=== PATIENT | male | born 1955 | race Caucasian/White ===

== ENCOUNTER → 2017-03-12 | Outpatient (CLI) | payer BC, OTHER ==
[~2017-03-12] VITALS: Ht 177.8 cm; Wt 122.9 kg
[~2017-03-12] MED LIST: ACCOLATE20 MG PO; ALLOPURINOL 10100 M1 PO; ASPIRIN325 PO; FLOMAX0.4 MG PO; HYDROCHLOROTHIA25 M2 PO; METFORMIN HCL500 MG PO; MUCINEX600 MG PO; NORVASC5 MG PO; PROSCAR 5MG TABL5 MG PO; PROTONIX 20 MG20 M1 PO; TRAMADOL 50 MG50 MG PO
--- NOTE | ~2017-03-12 | EKG ---
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 OSBORNE : 1955 Requested By: Darrell Reyes Order Number: [id number] MD: Darius Celis Measurements Intervals [place] Rate: 72 P: 10 CT: 157 QRS: -34 QRSD: 92 T: 32 QT: 398 QTc: 436 Interpretive Statements Sinus rhythm Abnormal R-wave progression, late transition No previous ECG available for comparison Electronically Signed On 03-12-2017 8:26:18 TESTER OPERATOR HELPER by Darius Celis [email or web address] <ELECTRONICALLY SIGNED> By: Darius Celis MD, [facility] 03/12/17 0826 0700 9 Darius Celis MD, FACC /EPI
--- NOTE | ~2017-03-12 | CATHLAB ---
[place] [address] [facility] [place] [address] INVASIVE PROCEDURE REPORT Name: CASANDRAMARISSA RINKU Room #: REG [facility] [id number] Admission: 03/12/17 Attend Phys: Darrell Reyes MD Discharge: Date of : 55 Date of Service: 03/12/17 1214 Report #: [id number] THIS REPORT FOR: //name// APPROVED REPORT Patient Details Patient Status: Out-Patient Room #: The patient is a 62 year-old male Event Personnel Darrell Reyes Fire Hazard Inspector, Elder George RN, Nancy RCIS, Mahmood, Amber Procedures Performed Cors only, Arterial access, Indication Dyspnea, Positive stress test Risk Factors Hypercholesterolemia, Hypertension, Diabetes Procedure Narrative The patient was brought electively to the Cardiac Catheterization Laboratory and was prepped and draped in a sterile manner. A 4 fr sheat sheath was inserted into the right femoral artery. Coronary angiography was performed using coronary diagnostic catheters. The right coronary system was accessed and visualized with a JR 4 catheter. The left coronary system was accessed and visualized with a JL 4 catheter. Hemostasis was obtained with manual pressure following sheath removal without any complications. The patient tolerated the procedure well and there were no complications associated with the procedure. There was no hematoma. Intraoperative Conscious Sedation Sedation start time: 09:46 Case end Time: 10:02 Fentanyl 25.0 mcg Versed 1.5 mg Fluoro Time: 5.20 minutes Dose: DAP 08383.58 cGycm2 1170 mGy Contrast Type and Amount: Omnipaque 80 Coronary Angiography The patient's coronary anatomy is right dominant. [facility] [address] [place] [address] INVASIVE PROCEDURE REPORT Name: MARISSA GUAJARDO Room #: REG CL [facility]#: [id number] Admission: 03/12/17 Attend Phys: Darrell Reyes MD Discharge: Date of : 55 Date of Service: 03/12/17 1214 Report #: [id number] Diagnostic Cath Left Main patent vessel, with no flow-limiting lesions. LAD Moderate size caliber vessel, traveling down the anterior wall and terminating before the apex. There is only mild disease in the proximal segment, less than 20%. Diagonal 1 Patent vessel, with no flow-limiting lesions. Circumflex Patent vessel, with no flow-limiting lesions. OM1 Patent vessel, with no flow-limiting lesions. Right Coronary Dominant vessel with mild disease in the proximal segment, 30%. R PDA Patent vessel, with no flow-limiting lesions. RPLV Patent vessel, with no flow-limiting lesions. Left Ventriculography Left Ventriculography was not performed. Conclusion 1. Mild, nonobstructive CAD. 2. Right dominant system. 3. Recommend aggressive risk factor management. <ELECTRONICALLY SIGNED> By: Darrell Reyes MD 03/12/17 1214 1214 Darrell Reyes MD /INF
[2017-03-12 07:11] VITALS: BP 155/78
[2017-03-12 07:32] LABS: HEMATOCRIT 43.8 % (42.0-52.0); HEMOGLOBIN 14.8 gm/dL (14.0-18.0); MCH 30.2 pg (26.0-34.0); MCHC 33.9 g/dL (28.0-37.0); MCV 89.1 fL (80.0-100.0); RBC 4.91 mil/uL (4.50-6.00); WBC 9.3 thou/uL (4.0-11.0)
[2017-03-12 07:43] LABS: CALCIUM 8.8 mg/dL (8.5-10.1); CREATININE 0.8 mg/dL (0.7-1.3)
== END | disposition home or self-care (01) ==
LOC: CATH 06:33
PROVIDERS: Internal Medicine Cardiovascular Disease
DX: I25.10 Atherosclerotic heart disease of native coronary artery without angina pectoris (principal); E78.00 Pure hypercholesterolemia, unspecified; I10 Essential (primary) hypertension; E11.9 Type 2 diabetes mellitus without complications; Z98.890 Other specified postprocedural states; K21.9 Gastro-esophageal reflux disease without esophagitis

== ENCOUNTER → 2020-11-20 | Outpatient (CLI) | payer OTHER, MEDICARE | LOC: SJCVC 13:22 | PROVIDERS: ATTEND Internal Medicine Cardiovascular Disease | DX: R94.31 Abnormal electrocardiogram [ECG] [EKG] (principal); I44.4 Left anterior fascicular block; I11.9 Hypertensive heart disease without heart failure; R60.9 Edema, unspecified; R06.00 Dyspnea, unspecified; R09.89 Other specified symptoms and signs involving the circulatory and respiratory systems; I25.10 Atherosclerotic heart disease of native coronary artery without angina pectoris; E11.9 Type 2 diabetes mellitus without complications; K21.9 Gastro-esophageal reflux disease without esophagitis; Z88.2 Allergy status to sulfonamides; Z88.8 Allergy status to other drugs, medicaments and biological substances; Z79.82 Long term (current) use of aspirin; Z79.899 Other long term (current) drug therapy ==

== ENCOUNTER → 2020-12-20 | Outpatient (CLI) | payer OTHER, MEDICARE | LOC: SJCVCIMAG 07:04 | PROVIDERS: ATTEND Internal Medicine Cardiovascular Disease | DX: I08.3 Combined rheumatic disorders of mitral, aortic and tricuspid valves (principal); I25.10 Atherosclerotic heart disease of native coronary artery without angina pectoris; I10 Essential (primary) hypertension; E78.00 Pure hypercholesterolemia, unspecified; R60.9 Edema, unspecified; R55 Syncope and collapse; K21.9 Gastro-esophageal reflux disease without esophagitis; E11.9 Type 2 diabetes mellitus without complications; Z88.2 Allergy status to sulfonamides; Z88.8 Allergy status to other drugs, medicaments and biological substances; Z79.82 Long term (current) use of aspirin; Z79.84 Long term (current) use of oral hypoglycemic drugs; Z79.899 Other long term (current) drug therapy ==

== ENCOUNTER → 2021-03-13 | Outpatient (CLI) | payer OTHER, MEDICARE ==
[~2021-03-13] MED LIST changes: +ASA81BEC PO; +CLARITIN10 M3 PO; +FARXIGA5 MG PO; +LIPITOR40 MG PO; +LOSARTAN POTASS50 MG PO
[2021-03-13 10:20] LABS: HEMATOCRIT 43.2 % (42.0-52.0); HEMOGLOBIN 14.2 gm/dL (14.0-18.0); MCH 29.9 pg (26.0-34.0); MCHC 32.9 g/dL (28.0-37.0); MCV 91.1 fL (80.0-100.0); RBC 4.74 mil/uL (4.50-6.00)
[2021-03-13 10:21] LABS: URINE BILIRUBIN NEGATIVE (Negative); URINE BLOOD NEGATIVE (Negative); URINE CLARITY CLEAR; URINE COLOR YELLOW; URINE GLUCOSE-RANDOM* 3+ (Negative); URINE KETONES NEGATIVE (Negative); URINE LEUKOCYTES-REFLEX NEGATIVE (Negative); URINE NITRITE-REFLEX NEGATIVE (Negative); URINE PROTEIN (DIPSTICK) NEGATIVE (Negative); URINE UROBILINOGEN 0.2 E.U./dl (0.2-1.0)
[2021-03-13 10:44] LABS: ALBUMIN 4.1 g/dL (3.4-5.0); CALCIUM 9.4 mg/dL (8.5-10.1); POTASSIUM 3.7 mmol/L (3.5-5.1)
[2021-03-13 10:59] LABS: PROTIME 10.9 Seconds (10.5-12.1)
== END ==
LOC: PAC 09:47
PROVIDERS: ATTEND Orthopaedic Surgery
DX: Z01.812 Encounter for preprocedural laboratory examination (principal); M16.12 Unilateral primary osteoarthritis, left hip

== ENCOUNTER 2021-04-22 06:08 | Inpatient (IN) | payer OTHER, MEDICARE ==
[~2021-04-22] VITALS: Ht 175.3 cm; Wt 104.8 kg
--- NOTE | ~2021-04-22 | O ---
[facility] [place] [address] OPERATIVE REPORT Name: MARISSA GUAJARDO Room #: 150-6 ADM IN M.R.#: [id number] Admission: 04/22/21 Attend Phys: Josh Dueñas MD Discharge: Date of : 55 Report #: [id number] THIS REPORT FOR: cc: Erik Ibarra,Erik Martin,Josh Ferrari MD ~ DATE OF SERVICE: 04/22/2021 PREOPERATIVE DIAGNOSIS: Left hip osteoarthritis. POSTOPERATIVE DIAGNOSIS: Left hip osteoarthritis. PROCEDURE: Left total hip arthroplasty. SURGEON: Josh Dueñas MD TREE WORKER: Joanne Chaparro PA-C. INDICATION FOR TREE WORKER: Throughout the case, extensive retraction, manipulation of the hip including dislocation and reduction was required. This was afforded to me by my assistant pressman. ANESTHESIA: General. IMPLANTS: A [employer]hew size 12 high offset Synergy press-fit stem, a size 58 R3 acetabular cup with one acetabular screw and a size 40+8 Oxinium head as well as an Arthrex FiberTape cerclage for prophylactic femur fixation. ESTIMATED BLOOD LOSS: 50 mL COMPLICATIONS: None. SPECIMENS: None. CONDITION UPON LEAVING THE OR: Stable. INDICATIONS FOR PROCEDURE: The patient is a 66-year-old gentleman with left hip osteoarthritis. He had failed conservative measures for this and after discussion with him, he elected for left total hip arthroplasty. DESCRIPTION OF PROCEDURE: Risks, benefits, alternatives, complications were discussed in detail with the patient including, but not limited to risk of anesthesia, risk of damage to nerves, arteries, blood vessels, risk for infection, bleeding, risk for continued hip pain, leg length discrepancy, instability and need for reoperation. Informed consent was obtained from the patient. Left hip was appropriately marked in the preoperative holding area. [address] [address] OPERATIVE REPORT Name: CASANDRAMARISSA RINKU Room #: 150-6 ADM IN M.R.#: [id number] Admission: 04/22/21 Attend Phys: Josh Dueñas MD Discharge: Date of : 55 Report #: [id number] Ancef was given for preoperative antibiotics. He was brought to the operating room and placed in supine position on the operating room table. General endotracheal anesthesia was induced without complication. He was placed in the right lateral decubitus position with the left hip uppermost. Left hip and lower extremity were prepped and draped in normal sterile fashion. Timeout was performed, properly identifying the patient and procedure as well as the instrumentation and implants. All in the operating room were in agreement. Standard posterior approach to the left hip was made with 10 blade through the skin. Dissection was taken down to fascia with Bovie cautery and Dubose elevator was used to clean off the fascia. Fresh 10 blade was used to make a fascial incision. This was taken proximally and distally with curved Wiggins scissors. Charnley retractor was placed. Trochanteric bursa was taken down with Bovie cautery. Piriformis tendon was identified, tagged and taken down with Bovie. Short external rotators were also taken down with Bovie cautery. Capsulotomy was made and capsule ends were tagged for later repair. Hip was dislocated. There was extensive osteoarthritic change of the femoral head. Femoral neck cut was made 1 cm proximal to the lesser trochanter based on preoperative templating and the femoral head was removed. Deep acetabular retractors were placed. Labrum was removed sharply. Pulvinar was removed with Bovie cautery. Acetabulum was then sequentially reamed up to a size 58, at which point there was excellent bleeding cancellous bone. A size 57 trial cup was placed, found to have a good fit. Final size 58 R3 acetabular cup was placed and seated. One acetabular screw was placed for backup fixation and a polyethylene liner for a 40 head was placed. Attention was turned to the femur. This was reamed and broached up to a size 12, at which point the size 12 broach was stable, was trialed with a high offset neck and a 40+0 head. Hip was reduced, taken through range of motion, found to be somewhat unstable posteriorly with short leg lengths. Hip was dislocated and a 40+8 head was trialled. Hip was reduced, taken through range of motion, found to be stable, found to have equal leg lengths. Hip was dislocated. Broach was removed. An Arthrex FiberTape was placed around the proximal femur for prophylactic fixation and final size 12 high offset Synergy press-fit stem was placed and seated. This was trialed again with a 40+8 head. Hip was reduced, taken through range of motion, found to be stable, found to have equal leg lengths. Hip was dislocated. Trial head was removed and final size 40+8 Oxinium head was placed. Hip was reduced, taken through range of motion, found to be stable, found to have equal leg lengths. A periarticular injection consisting of morphine, ropivacaine, epinephrine, Toradol was placed around the hip joint capsule. A gram of vancomycin was placed deep in the joint. Capsule and piriformis were repaired with 0 FiberWire. Fascia was closed with 0 Vicryl. Skin was closed with 2-0 Vicryl. Skin staple [facility] [address] [place] [address] OPERATIVE REPORT Name: MARISSA GUAJARDO Room #: 150-6 [facility] IN ..#: [id number] Admission: 04/22/21 Attend Phys: Josh Dueñas MD Discharge: Date of : 55 Report #: [id number] and a DOMINGO dressing was applied. The patient tolerated this procedure well and went to recovery room under care of anesthesia postoperatively. By: [id number] Josh Dueñas MD /nt
[~2021-04-22 06:08] MED LIST changes: +ALLOPURINOL 30300 M1 PO; +PROTONIX40 M2 PO
[2021-04-22 09:17] VITALS: BP 140/75
[2021-04-22 12:40] VITALS: BP 137/72
--- NOTE | 2021-04-22 14:55 | NUR ---
met with patient who reports he resides in home with . He has purchased a 3 inch stool riser. He reports 3 steps to enter then all needs on one level. He does not have a walker. Both he and are retired. He has a shower/tub. Patient resides in [facility]. Patient wearing oxygen that he does not use at home. Therapy evals in process.
--- NOTE | 2021-04-22 15:26 | NUR ---
Patient arrived to floor at 1340, alert and oriented x 4. pain of level 3-4. vital sign stable, ate lunch, and void per urinal. call light with in reach, will continous monitor.
[2021-04-22 20:17] VITALS: BP 110/60
--- NOTE | 2021-04-23 04:25 | NUR ---
ASSUMED PT CARE THSI PM. PT IS ALERT AND ORIENTED X4. PT HAS DOMINGO DRSG ON LEFT HIP WHICH IS C/D/I. PT C/O PAIN WHICH WAS MANAGED BY [facility].MEDS WERE GIVEN PER EMAR ORDERS. NO OTHER CONCERNS WERE VERBALIZED. WILL CONTINUE TO MONITOR.
[2021-04-23 08:33] VITALS: BP 129/50
[2021-04-23 12:30] VITALS: BP 129/62
[2021-04-23 16:28] VITALS: BP 121/62
--- NOTE | 2021-04-23 16:59 | NUR ---
obtained a walker for home from [facility]
--- NOTE | 2021-04-23 17:53 | NUR ---
PATIENT AKLERT AND ORIENTED X 4. C/O LEFTHIP PAIN. CWMS TO FEET INTACT. DRESSING D/I. PAIN CONTROLLED. UP WITH WALKER. HOME TOMORROW
[2021-04-23 19:54] VITALS: BP 124/61
--- NOTE | 2021-04-24 05:54 | NUR ---
ASSUMED PT CARE THIS PM. PT IS ALERT AND ORIENTED X4. PT HAS DOMINGO DRSG TO THE LEFT HIP WHIC IS D/C/I. PT C/O PAIN WHICH WAS MANAGED BY [facility]. MEDS WERE GIVEN PER EMAR ORDERS. PT DID NOT EXPRESS ANY OTHER CONCERNS. PT IS ON RA. FALL PRECAUTIONS IN PLACE. WILL CONTINUE TO MONITOR.
[2021-04-24 07:29] VITALS: BP 125/74
[2021-04-24 10:14] VITALS: BP 125/74
[2021-04-24 11:30] VITALS: BP 125/74
[2021-04-24 11:46] VITALS: BP 106/58
== END 2021-04-24 12:56 | disposition home or self-care (01) | DRG 470 ==
LOC: OR 06:08 → 4S 10:18 → TBA 10:18 → OR 10:21 → 4S 12:59 → OR 14:37 → 4S 04-24 12:56
PROVIDERS: ADMIT Orthopaedic Surgery; ATTEND Orthopaedic Surgery
PROC: 0SRB06A Replacement of Left Hip Joint with Oxidized Zirconium on Polyethylene Synthetic Substitute, Uncemented, Open Approach (ICD-10-PCS; principal; 2021-04-22)
DX: M16.12 Unilateral primary osteoarthritis, left hip (principal); Z20.822 Contact with and (suspected) exposure to COVID-19; Z88.2 Allergy status to sulfonamides; Z88.8 Allergy status to other drugs, medicaments and biological substances
CPT/HCPCS: 10102; 50010; 50101; 50382; 50414; 51412; 53000; 53078; 53368; 56524; 56528; 56530; 57095; 57103; 57978; 57979; 62110; 62900; 70005